=== PATIENT | female | born 1990 | race Two or more races ===

== ENCOUNTER 2018-07-19 10:54 | Emergency (ER) | payer MEDICAID ==
[~2018-07-19] VITALS: Ht 160 cm; Wt 77.1 kg
[2018-07-19] MEDS ORDERED: SODIUM CHLORIDE 0.9% 1,000 ML IVB ONE (11:17)
[2018-07-19] MEDS ORDERED: PROMETHAZINE HCL 25 MG/ML 1ML IV ONE (11:30)
[2018-07-19 11:38] LABS: Basophils # (auto) 0 uL; Basophils % (auto) 0.6 % (0.0-2.0); Eosinophils # (auto) 0 uL; Eosinophils % (auto) 0.7 % (0.0-7.0); Hematocrit 45.1 % (36.0-46.0); Hemoglobin 14.9 g/dL (12.2-16.2); Lymphocytes # (auto) 1.2 uL; Mean Corpuscular Volume 81.8 fL (80.0-100.0); Monocytes # (auto) 0.8 uL; Monocytes % (auto) 12.9 % (0.0-12.0); Neutrophils # (auto) 4.3 uL; Neutrophils % (auto) 66.8 % (37.0-80.0); Nucleated Red Blood Cells % 0.1 %; Platelet Count (auto) 303 10^3/uL (140-450); Red Blood Cells 5.52 10^6/uL (4.0-5.20); Red Cell Distribution Width 14.3 % (11.8-14.3); White Blood Cell 6.5 10^3/uL (4.4-10.8)
[2018-07-19] MEDS ORDERED: KETOROLAC TROMETH 30 MG/ML 1ML VIAL IV ONE (11:45)
[2018-07-19 12:04] LABS: INR 2.07 (0.9-1.15); Partial Thromboplastin Time 64.8 sec (23.78-33.04); Prothrombin Time 21.3 sec (9.27-12.13)
[2018-07-19 12:16] LABS: Urine Bacteria NONE SEEN /hpf (None Seen); Urine Blood 3+ /uL (Negative); Urine Specific Gravity 1.014 (1.001-1.035); Urine WBC 177 /hpf (0 - 5)
[2018-07-19 12:28] LABS: Albumin 3.9 g/dL (3.4-5.0); BUN/Creatinine Ratio 14.7; Calcium 8.3 mg/dL (8.5-10.1); Potassium 3.2 mmol/L (3.5-5.1)
[2018-07-19 12:30] LABS: Magnesium 2.4 mg/dL (1.6-2.6)
[2018-07-19 12:31] LABS: Bilirubin, Total 0.5 mg/dL (0.2-1.0); Total Protein 8.2 g/dL (6.4-8.2)
[2018-07-19] MEDS ORDERED: POTASSIUM CHL 20 Meq TABLET PO ONE (14:00)
[2018-07-19 14:22] VITALS: BP 100/56
== END 2018-07-19 15:15 | disposition home or self-care (01) ==
LOC: EDBD 10:54 → ER 10:58
DX: G43.909 Migraine, unspecified, not intractable, without status migrainosus (principal); N39.0 Urinary tract infection, site not specified; E87.6 Hypokalemia; F17.210 Nicotine dependence, cigarettes, uncomplicated; F12.10 Cannabis abuse, uncomplicated
CPT/HCPCS: 36415; 70450; 80053; 81001; 82150; 83690; 83735; 84702; 85025; 85610; 85730; 94761; 96361; 96374; 96375; 99284; J1885; J2550; J7030